=== PATIENT | female | born 1985 | race Caucasian/White ===

== ENCOUNTER 2022-02-12 04:09 | Emergency (ER) | payer MEDICAID, OTHER ==
[~2022-02-12] VITALS: Ht 167.6 cm; Wt 81.8 kg
[~2022-02-12 04:09] MED LIST: BACL10TA2 PO; IBUP-1051 PO
[2022-02-12 04:33] VITALS: BP 110/67
[2022-02-12] MEDS ORDERED: LIDOcaine 1% w/EPI 1:100,000 30ml vial (MDV) IJ ONE (04:50)
[2022-02-12] MEDS ORDERED: CEPH-585 PO (04:58)
[2022-02-12] MEDS ORDERED: DOXY100C76 PO (04:58)
== END 2022-02-12 05:17 | disposition home or self-care (01) ==
LOC: ER 04:10
DX: T78.3XXA Angioneurotic edema, initial encounter (principal); L02.01 Cutaneous abscess of face; Z79.2 Long term (current) use of antibiotics; Z79.899 Other long term (current) drug therapy; X58.XXXA Exposure to other specified factors, initial encounter; Y93.89 Activity, other specified; Y92.89 Other specified places as the place of occurrence of the external cause; Y99.8 Other external cause status
CPT/HCPCS: 10160; 99284; J3490

== ENCOUNTER 2024-04-16 03:17 | Emergency (ER) | payer MEDICAID ==
[~2024-04-16] VITALS: Ht 170.2 cm; Wt 109.1 kg
[2024-04-16 04:06] LABS: EOSINOPHILS # (AUTO) 0.2 X10'3 (0-0.9); MEAN PLATELET VOLUME 7.5 FL (7.4-10.4); MONOCYTES # (AUTO) 0.8 X10'3 (0-0.9)
[2024-04-16 04:08] LABS: BASOPHILS % (AUTO) 0.4 % (0-1); EOSINOPHILS % (AUTO) 1.7 % (0-6); HEMATOCRIT 41.4 % (35.0-45.0); HEMOGLOBIN 14.4 g/dl (12.0-16.0); LYMPHOCYTES # (AUTO) 2.8 X10'3 (1.1-4.8); LYMPHOCYTES % (AUTO) 28.4 % (21-51); MEAN CORPUSCULAR HEMOGLOBIN 30.8 PG (27.0-31.0); MEAN CORPUSCULAR HGB CONC 34.7 g/dL (33.0-36.5); MEAN CORPUSCULAR VOLUME 88.9 FL (78-98); MONOCYTES % (AUTO) 7.8 % (2-12); NEUTROPHILS # (AUTO) 6.1 X10'3 (1.8-7.7); NEUTROPHILS % (AUTO) 61.7 % (42-75); PLATELET COUNT 309 X10'3 (140-440); RED BLOOD COUNT 4.66 X10'6 (4.20-5.60); RED CELL DISTRIBUTION WIDTH 13.1 % (11.5-14.5); WHITE BLOOD COUNT 9.8 X10'3 (4.5-11.0)
[2024-04-16 04:33] LABS: ALBUMIN 3.8 G/DL (3.4-5.0); BLOOD UREA NITROGEN 9 MG/DL (7-18); BUN/CREATININE RATIO 10.1 (10.0-20.0); CALCIUM 9.3 MG/DL (8.5-10.1); CREATININE 0.89 MG/DL (0.40-0.90); GLUCOSE 108 MG/DL (70-104); LIPASE 26 U/L (16-77); TOTAL CARBON DIOXIDE 24.2 MMOL/L (24-32); eCRCL 83 ML/MIN; eGFR 71 ML/MIN
[2024-04-16 05:01] LABS: ANION GAP 12 (8-16); CHLORIDE 101 MMOL/L (99-107); POTASSIUM 3.8 MMOL/L (3.5-5.1); SODIUM 137 MMOL/L (135-145)
[2024-04-16 05:02] LABS: PRO BRAIN NATRIURETIC PEPTIDE < 30 PG/ML (0-125)
[2024-04-16] MEDS: ketorolac trometh 30MG/ML vial 30 MG/ML VIAL IV ONE (05:37)
[2024-04-16] MEDS: acetaminophen 325mg tablet PO ONE (05:38)
[2024-04-16 07:21] LABS: BETA HCG,QUANTITATIVE < 1.0 mIU/ml
[2024-04-16 08:08] LABS: D-DIMER 0.64 MG/L FEU (0-0.50)
[2024-04-16] MEDS ORDERED: iohexol 300mg/ml 100ml inj. ONE (08:41)
[2024-04-16] MEDS ORDERED: AMOX-117 PO (09:36)
[2024-04-16] MEDS ORDERED: AZIT-164 PO (09:36)
[2024-04-16] MEDS: prednisone 10mg tablet PO STA (09:42)
[2024-04-16 09:44] VITALS: BP 107/88; PULSE 76; RESP 14; TEMP 98.3; O2SAT 98
== END 2024-04-16 09:51 | disposition home or self-care (01) ==
LOC: ER 03:18
DX: R09.1 Pleurisy (principal); J18.9 Pneumonia, unspecified organism; F17.210 Nicotine dependence, cigarettes, uncomplicated; Z79.1 Long term (current) use of non-steroidal anti-inflammatories (NSAID)
CPT/HCPCS: 36415; 71045; 71275; 80048; 83690; 83880; 84484; 84702; 85025; 85379; 93005; 96374; 99285; J1885; J7512; Q9967